=== PATIENT | female | born 1965 | race Caucasian/White ===

== ENCOUNTER 2016-11-08 11:08 | Emergency (ER) | payer OTHER ==
[2016-11-08 11:37] VITALS: RESP 16; TEMP 98.1
--- NOTE | 2016-11-08 11:50 | ED PDOC ---
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 Patient stated her car door closed, crushing her hand. Time/Duration: Prior to Arrival Context: Street Past Medical History - Infectious Disease Hx of Infectious Diseases: None - Reproductive Menopause: Yes - Psychiatric Hx Substance Use: No - Anesthesia Hx Anesthesia: No Family/Social History Smoking Status: Unknown If Ever Smoked Hx Alcohol Use: No Hx Substance Use: No Allergies/Home Meds Allergies/Adverse Reactions: Allergies No Known Allergies Allergy (Verified 11/08/16 11:37) Physical Exam Vital Signs Temp Pulse Resp BP Pulse Ox 11/08/16 11:32 98.1 F 75 16 115/74 100 Medical Decision Making ED Course and Treatment: 11/08/16 12:36 Re-evaluation. Patient feels better. Discussed results and plan with patient who expresses understanding. Counseling was provided regarding the diagnosis and prognosis. All questions answered and there is agreement with the plan to discharge home with instructions. Patient stable for discharge. Return if symptoms persist or worsen. Re-evaluation Time: 12:39 Reassessment Condition: Re-examined, Improved - RAD Interpretation Narrative RAD Interpretations (Text): 11/08/16 12:39 Hand x-rays: (+) non displaced Fx of distal phalanx , 3rd, and 4th finger Radiology Orders: 11/08/16 11:48 HAND LEFT 3 VIEWS ROUTINE [RAD] Stat - Medication Orders Current Medication Orders: Discontinued Medications Ketorolac Tromethamine (Toradol) 30 mg IM STAT STA Stop: 11/08/16 11:50 Last Admin: 11/08/16 12:00 Dose: 30 mg Oxycodone/Acetaminophen (Percocet 5/325 Mg Tab) 1 tab PO STAT STA Stop: 11/08/16 12:22 Last Admin: 11/08/16 12:34 Dose: 1 tab - Procedure PROCEDURE NOTE (Text): 11/08/16 12:45 Finger splint was applied by Shun Thomas Disposition/Present on Arrival - Present on Arrival Any Indicators Present on Arrival: No History of DVT/PE: No History of Uncontrolled Diabetes: No Urinary Catheter: No History of Decub. Ulcer: No History Surgical Site Infection Following: None - Disposition Have Diagnosis and Disposition been Completed?: Yes Diagnosis: Distal phalanx or phalanges, closed fracture Disposition: HOME/ ROUTINE Disposition Time: 12:40 Patient Plan: Discharge Patient Problems: Current Active Problems Problem Status Onset Distal phalanx or phalanges, closed fracture Acute Condition: GOOD Discharge Instructions (ExitCare): Finger Fracture (ED) Additional Instructions: Call private doctor for follow up visit in 2-3 days. Keep hand elevated, ice, rest, finger splits. Call hand doctor if pain persist. Take medication as instructed . Return to emergency if pain worsen. Prescriptions: Famotidine [Pepcid] 40 mg PO DAILY #10 tablet Ibuprofen [Motrin] 600 mg PO Q8 PRN #20 tab PRN Reason: Pain, Severe (8-10) Referrals: PCP,NO [Primary Care Provider] - Follow up with primary Bernardo Zimmerman MD [Staff Provider] - Follow up with primary Forms: [employer] (Ukrainian)
[2016-11-08] MEDS ORDERED: Oxycodone/Acetaminophen 5/325 mg Tab PO STA (12:21)
--- NOTE | 2016-11-08 12:27 | RAD ---
PROCEDURE: Left Hand Radiographs. HISTORY: pain s/p trauma COMPARISON: None. FINDINGS: BONES: Normal. No fracture. JOINTS: Normal. No osteoarthritic changes. SOFT TISSUES: Normal. OTHER FINDINGS: None. IMPRESSION: Normal left hand radiographs.
[2016-11-08 12:57] VITALS: BP 120/72; PULSE 80; O2SAT 99
== END 2016-11-08 13:02 | disposition home or self-care (01) ==
LOC: ED 11:08
DX: S62.663A Nondisplaced fracture of distal phalanx of left middle finger, initial encounter for closed fracture (principal); S62.665A Nondisplaced fracture of distal phalanx of left ring finger, initial encounter for closed fracture; W23.0XXA Caught, crushed, jammed, or pinched between moving objects, initial encounter; Y93.89 Activity, other specified; Y92.89 Other specified places as the place of occurrence of the external cause
CPT/HCPCS: 29130; 73130; 96372; 99283; J1885

== ENCOUNTER 2016-11-11 16:07 | Emergency (ER) | payer OTHER ==
[2016-11-11 16:15] VITALS: BP 112/72; PULSE 80; RESP 16; TEMP 98.1; O2SAT 98
--- NOTE | 2016-11-11 16:52 | ED PDOC ---
Arrival/HPI - General Chief Complaint: Upper Extremity Problem/Injury Time Seen by Provider: 11/11/16 16:19 Historian: Patient, Family - History of Present Illness Narrative History of Present Illness (Text): 11/11/16 16:20 This 51 yo female presents to this ED for finger injury recheck. Patient stated she was seen in this ED x 3 days ago after finger crushed injury. Patient stated pain has improved, but finger continue with bruising. Patient denies other complains. Time/Duration: Other (see hpi) Context: Home Past Medical History - Provider Review Nursing Documentation Reviewed: Yes - Infectious Disease Hx of Infectious Diseases: None - Psychiatric Hx Substance Use: No - Anesthesia Hx Anesthesia: No Family/Social History - Physician Review Nursing Documentation Reviewed: Yes Family/Social History: Other (non-contributory) Smoking Status: Unknown If Ever Smoked Hx Alcohol Use: No Hx Substance Use: No Allergies/Home Meds Allergies/Adverse Reactions: Allergies No Known Allergies Allergy (Verified 11/11/16 16:15) Home Medications: Home Meds Medication Instructions Recorded Confirmed No Known Home Med 11/11/16 11/11/16 Review of Systems - Review of Systems Constitutional: Normal. absent: Fatigue, Weight Change, Fevers, Night Sweats Eyes: Normal ENT: Normal Respiratory: Normal Cardiovascular: Normal Gastrointestinal: Normal Genitourinary Female: Normal Musculoskeletal: Other (finger injury recheck visit) Skin: Normal Neurological: Normal Endocrine: Normal Hemo/Lymphatic: Normal Psychiatric: Normal Physical Exam Vital Signs Temp Pulse Resp BP Pulse Ox 11/11/16 16:09 98.1 F 80 16 112/72 98 Temperature: Afebrile Blood Pressure: Normal Pulse: Regular Respiratory Rate: Normal Appearance: Positive for: Well-Appearing, Non-Toxic, Comfortable Pain Distress: None Mental Status: Positive for: Alert and Oriented X 3 - Systems Exam Head: Present: Atraumatic, Normocephalic Pupils: Present: PERRL Extroacular Muscles: Present: EOMI Conjunctiva: Present: Normal Mouth: Present: Moist Mucous Membranes Neck: Present: Normal Range of Motion Upper Extremity: Present: Normal ROM, NORMAL PULSES, Tenderness (mild tenderness on left 3rd, and 4th finger tips.), Neurovascularly Intact, Capillary Refill < 2s, Other ((+) ecchymosis noted on the distal aspect of left 3rd, and 4th finger, palmar side. No subungal hematoma). No: Cyanosis, Edema, Swelling, Erythema, Temperature Abnormalties, Deformity Lower Extremity: Present: Normal Inspection, NORMAL PULSES, Normal ROM, Capillary Refill < 2 s. No: Edema Neurological: Present: GCS=15, CN II-XII Intact, Speech Normal, Motor Func Grossly Intact, Normal Sensory Function, Normal Cerebellar Funct, Gait Normal Skin: Present: Warm, Dry, Normal Color. No: Rashes Psychiatric: Present: Alert, Oriented x 3, Normal Insight, Normal Concentration Medical Decision Making ED Course and Treatment: 11/11/16 16:54 Re-evaluation. Patient feels better. Discussed results and plan with patient who expresses understanding. All questions answered and there is agreement with the plan to discharge home with instructions. Patient stable for discharge. Return if symptoms persist or worsen. Re-evaluation Time: 16:54 Reassessment Condition: Re-examined, Improved Disposition/Present on Arrival - Present on Arrival Any Indicators Present on Arrival: No History of DVT/PE: No History of Uncontrolled Diabetes: No Urinary Catheter: No History of Decub. Ulcer: No History Surgical Site Infection Following: None - Disposition Have Diagnosis and Disposition been Completed?: Yes Diagnosis: Finger pain Disposition: HOME/ ROUTINE Disposition Time: 16:54 Patient Plan: Discharge Patient Problems: Current Active Problems Problem Status Onset Finger pain Acute Condition: GOOD Discharge Instructions (ExitCare): Hematoma (ED) Additional Instructions: Call private clinic for revaluation. Apply warmth and cold compress , alternate between the two. Keep hand elevated. Wash fingers daily with soap and water. Return to emergency if pain worsen. continue with Motrin as needed for pain prescribed on last visit. Referrals: PCP,NO [Primary Care Provider] - Follow up with primary [facility] [Outside] - Follow up with primary [facility] [Outside] - Follow up with primary Forms: [employer] (Khmer)
== END 2016-11-11 16:55 | disposition home or self-care (01) ==
LOC: ED 16:07
DX: M79.645 Pain in left finger(s) (principal)